=== PATIENT | female | born 1995 | race Hispanic/Latino ===

== ENCOUNTER 2021-04-04 08:37 | Inpatient (IN) | payer SELFPAY ==
[~2021-04-04] VITALS: Ht 160 cm; Wt 72.6 kg
[2021-04-04 09:24] LABS: BASOPHILS % (AUTO) 0.3 % (0.0-5.0); EOSINOPHILS % (AUTO) 0.1 % (0.0-8.0); HEMATOCRIT 42.6 % (36-48); LYMPHOCYTES % (AUTO) 9.6 % (21.0-51.0); MEAN CORPUSCULAR HEMOGLOBIN 31.4 pg (27.0-33.0); MEAN CORPUSCULAR HGB CONC 33.8 g/dL (32.0-36.0); MEAN CORPUSCULAR VOLUME 92.8 fL (79-99); NEUTROPHILS % (AUTO) 85.7 % (40.0-77.0); PLATELET COUNT (AUTO) 316 K/uL (130-400); RED BLOOD CELL COUNT(AUTO) 4.59 MIL/uL (4.00-5.50); WHITE BLOOD COUNT (AUTO) 12.9 K/uL (4.8-10.8)
[2021-04-04] MEDS ORDERED: FENTANYL CITRATE PF 50 MCG/1 ML 2ML VIAL IVP SCH (09:30)
[2021-04-04] MEDS: FENTANYL CITRATE PF 50 MCG/1 ML 2ML VIAL ONE ×2 (09:30→10:32)
[2021-04-04 09:45] LABS: ALBUMIN 4.7 g/dL (3.5-5.0); BILIRUBIN,TOTAL 0.9 mg/dL (0.2-1.0); CREATININE 0.9 mg/dL (0.5-1.5); TOTAL PROTEIN, SERUM 8.7 g/dL (6.0-8.3)
[2021-04-04] MEDS ORDERED: ONDANSETRON 4MG INJ ONE (10:27)
[2021-04-04] MEDS ORDERED: 0.9%NACL 1000ML 1,000 ML IV SCH (10:30)
[2021-04-04 10:38] LABS: APPEARANCE,URINE Clear (CLEAR); BILIRUBIN,URINE Negative (NEGATIVE); COLOR,URINE Yellow (YELLOW); GLUCOSE, URINE (UA) Negative (NEGATIVE); KETONES,URINE >=160 mg/dL (NEGATIVE); LEUKOCYTE ESTERASE ,URINE Small (NEGATIVE); NITRATE,URINE Negative (NEGATIVE); OCCULT BLOOD,URINE Negative (NEGATIVE); PH,URINE 8.5 (5.0-8.0); PROTEIN,URINE Negative (NEGATIVE)
[2021-04-04 10:52] LABS: HCG,QUAL RESULT NEGATIVE (NEGATIVE)
[2021-04-04] MEDS ORDERED: KETOROLAC 30MG VIAL (30MG/ML) ONE (10:52)
[2021-04-04] MEDS ORDERED: KETOROLAC 30MG VIAL (30MG/ML) IV SCH (11:00)
[2021-04-04 11:03] LABS: BACTERIA,URINE Few /HPF (None Seen); RBC,URINE 0-1 /HPF (0-1); SQUAMOUS EPITHELIAL CELL,UR Moderate /HPF (0-2)
[2021-04-04] MEDS ORDERED: ACETAMINOPHEN 325 MG TAB PO PRN ×2 (13:00)
[2021-04-04] MEDS ORDERED: HYDROMORPHONE 1 MG INJ IVP PRN (13:00)
[2021-04-04] MEDS ORDERED: ZOSYN 3.375GM +NS 50ML IV SCH (13:00)
[2021-04-04] MEDS: KETOROLAC 30MG VIAL (30MG/ML) IV SCH ×2 (13:00→17:35)
[2021-04-04] MEDS ORDERED: HYDROMORPHONE 0.5 MG SYG (0.5MG/0.5ML) IVP PRN (13:00)
[2021-04-04] MEDS ORDERED: MORPHINE 2 MG SYG IVP PRN (13:00)
[2021-04-04] MEDS ORDERED: ONDANSETRON 4MG INJ IVP PRN ×2 (13:00)
[2021-04-04] MEDS ORDERED: HYDROMORPHONE 0.5 MG SYG (0.5MG/0.5ML) IVP ONE (13:20)
[2021-04-04] MEDS: 0.9%NACL 50ML 50 ML IV SCH ×2 (13:40→21:00)
[2021-04-04] MEDS: LACTATED RINGERS 1000ML 1,000 ML IV SCH (13:40)
[2021-04-04] MEDS: ZOSYN 3.375GM +NS 50ML IV SCH ×2 (13:40→21:00)
[2021-04-04] MEDS: HYDROMORPHONE 1 MG INJ IVP PRN ×2 (14:45→17:15)
[2021-04-04] MEDS ORDERED: POLYETHYLENE GLYCOL 3350 17 GM POWD.PACK PO ONE (16:00)
[2021-04-04] MEDS ORDERED: DOCUSATE SODIUM 100 MG CAP PO SCH (16:00)
[2021-04-04] MEDS ORDERED: POLYETHYLENE GLYCOL 3350 17 GM POWD.PACK ONE (17:09)
[2021-04-04] MEDS: FAMOTIDINE 20MG VIAL IV SCH (21:00)
[2021-04-05] MEDS: HYDROMORPHONE 1 MG INJ IVP PRN ×2 (00:46→09:53)
[2021-04-05] MEDS: KETOROLAC 30MG VIAL (30MG/ML) IV SCH ×3 (01:01→11:46)
[2021-04-05] MEDS: LACTATED RINGERS 1000ML 1,000 ML IV SCH (03:32)
[2021-04-05 04:51] LABS: BASOPHILS % (AUTO) 0.3 % (0.0-5.0); EOSINOPHILS % (AUTO) 0.2 % (0.0-8.0); HEMATOCRIT 37.5 % (36-48); LYMPHOCYTES % (AUTO) 9.8 % (21.0-51.0); MEAN CORPUSCULAR HEMOGLOBIN 30.6 pg (27.0-33.0); MEAN CORPUSCULAR HGB CONC 32.5 g/dL (32.0-36.0); MONOCYTES % (AUTO) 8.8 % (3.0-13.0); NEUTROPHILS % (AUTO) 80.5 % (40.0-77.0); PLATELET COUNT (AUTO) 252 K/uL (130-400); RED BLOOD CELL COUNT(AUTO) 3.99 MIL/uL (4.00-5.50); RED CELL DISTRIBUTION WIDTH 12.1 % (11.0-15.5)
[2021-04-05 05:09] LABS: ALBUMIN 3.5 g/dL (3.5-5.0); BILIRUBIN,TOTAL 1.8 mg/dL (0.2-1.0); CREATININE 0.8 mg/dL (0.5-1.5); TOTAL PROTEIN, SERUM 7.1 g/dL (6.0-8.3)
[2021-04-05] MEDS: ZOSYN 3.375GM +NS 50ML IV SCH ×2 (06:18→13:29)
[2021-04-05] MEDS: 0.9%NACL 50ML 50 ML IV SCH ×2 (06:19→14:02)
[2021-04-05 09:42] VITALS: BP 126/68
[2021-04-05] MEDS: FAMOTIDINE 20MG VIAL IV SCH (09:44)
[2021-04-05] MEDS ORDERED: TRAM100T40 PO (10:18)
[2021-04-05 11:45] VITALS: BP 131/62
[2021-04-05 14:02] LABS: CHOLESTEROL 125 mg/dL (<200); HDL CHOLESTEROL 56 mg/dL (35-85); LDL DIRECT 61 mg/dL (0-99); TRIGLYCERIDES 37 mg/dL (30-200)
== END 2021-04-05 15:15 | disposition left against medical advice (07) | DRG 445 ==
LOC: EDH 08:37 → EDHIP 08:38 → WSH 04-05 08:35
PROVIDERS: ADMIT Internal Medicine; ATTEND Internal Medicine
DX: K80.00 Calculus of gallbladder with acute cholecystitis without obstruction (principal); N39.0 Urinary tract infection, site not specified; Z20.822 Contact with and (suspected) exposure to COVID-19; Z53.29 Procedure and treatment not carried out because of patient's decision for other reasons; Z87.442 Personal history of urinary calculi
CPT/HCPCS: 36415; 74176; 76705; 80053; 80061; 81001; 81025; 83690; 85025; 87088; 87635; G0378; J1170; J1885; J2405; J2543; J3010; J3490; J7030; J7120